=== PATIENT | female | born 1970 | race Caucasian/White ===

== ENCOUNTER 2017-10-08 13:21 | Day surgery (SDC) | payer OTHER ==
[~2017-10-08] VITALS: Ht 165.1 cm; Wt 99.8 kg
[~2017-10-08 13:21] MED LIST: BENADRYL 50MG C50 MG PO; BUSPAR 10MG TAB10 MG PO; CELEBREX 200MG200 MG PO; MOTRIN 400MG.400 MG PO; NORVASC 10MG. T10 MG PO; PROPRANOLOL HCL20 MG PO; ROPINIROLE HYDRO1 MG PO; SEROQUEL50 MG PO; SINGULAIR10 MG PO; TYLENOL ES500 MG PO
[2017-10-08 13:36] VITALS: BP 143/87
[2017-10-08 13:38] VITALS: BP 143/87
[2017-10-08 13:58] VITALS: BP 140/95; BP 143/87
--- NOTE | 2017-10-08 14:01 | Procedure Note ---
Procedure detail Date of procedure: 10/08/17 Anesthesiologist: Larry Wan Complications: None Pre-procedure diagnosis: Degenerative disc disease lumbar spine. Lumbar facet arthropathy. Lumbar spondylosis. Post-procedure diagnosis: Same. Indications for procedure: Very pleasant 46-year-old white female that comes our procedure clinic today for her initial injection of cortisone into the RIGHT L4-5 and L5-S1 facet joints. Patient has had significant improvement terms of her lumbar back pain in the past with lumbar facet blocks. Her pain is isolated to the RIGHT lower lumbar. Procedure detail: Informed consent was obtained and the risk and benefits of the procedure was explained to the patient. Patient was taken to the procedure room where noninvasive monitors were placed, including noninvasive blood pressure cuff as well as pulse oximeter. The area over the lumbar spine was cleansed using chlorhexidine as a cleansing solution. I anesthetized the skin and subcutaneous tissues with 1% Lidocaine. I placed 22-gauge spinal needles into the facet joint / medial branches of RIGHT L4-5, L5-S1. Needle placement was confirmed with fluoroscopy. After confirmation of needle placement, each site was injected with 1 mL of 1% lidocaine and 0.25 % Marcaine and 10 mg of Depo-Medrol. A total of 80 mg of depo medrol was used for bilateral medial branch blocks of RIGHT L4-5, L5 -S1. Patient tolerated the procedure without difficulty. There were no complications. Plan and disposition: Patient was reevaluated 10 minutes post procedure. She reports 50-75 percent improvement terms of her RIGHT lumbar back pain in flexion, extension, LEFT and RIGHT rotation. at [id number]
[2017-10-08 14:42] VITALS: BP 142/94
== END 2017-10-08 14:43 | disposition home or self-care (01) ==
LOC: PM 13:21
PROC: 3E0T3BZ Introduction of Anesthetic Agent into Peripheral Nerves and Plexi, Percutaneous Approach (ICD-10-PCS; principal; 2017-10-08)
PROC: 3E0T33Z Introduction of Anti-inflammatory into Peripheral Nerves and Plexi, Percutaneous Approach (ICD-10-PCS; 2017-10-08)
PROC: BR161ZZ Fluoroscopy of Lumbar Facet Joint(s) using Low Osmolar Contrast (ICD-10-PCS; 2017-10-08)
DX: M51.36 Other intervertebral disc degeneration, lumbar region (principal); M54.06 Panniculitis affecting regions of neck and back, lumbar region; M47.896 Other spondylosis, lumbar region
CPT/HCPCS: J1040